=== PATIENT | male | born 1960 | race Caucasian/White ===

== ENCOUNTER → 2016-10-27 | Outpatient (CLI) | payer OTHER | LOC: SLEEP 21:30 | DX: G47.33 Obstructive sleep apnea (adult) (pediatric) (principal) | CPT/HCPCS: 95811 ==

== ENCOUNTER → 2022-03-06 | Outpatient (CLI) | payer MEDICARE, OTHER | LOC: EMI 03-05 14:30 → MRI 10:54 | DX: G31.84 Mild cognitive impairment of uncertain or unknown etiology (principal); G47.50 Parasomnia, unspecified; G47.52 REM sleep behavior disorder | CPT/HCPCS: 70551 ==